=== PATIENT | female | born 1960 | race Caucasian/White ===

== ENCOUNTER 2018-06-23 09:44 | Outpatient (CLI) | payer BC ==
--- NOTE | 2018-06-23 10:48 | MMO ---
MAMMO Bilat Diag [facility]. CLINICAL HISTORY: Patient is 58 years old and is seen for diagnostic exam and pain in the left breast. The patient has the following family history of breast cancer: mother, at age 45. The patient has no personal history of cancer. VIEWS: The views performed were: bilateral craniocaudal with tomosynthesis; bilateral mediolateral oblique with tomosynthesis; and bilateral mediolateral. FILMS COMPARED: The present examination has been compared to prior imaging studies performed at [facility] on 06/23/2018, and at [facility] on 06/27/2007, 03/30/2012 and 08/29/2013. MAMMOGRAM FINDINGS: The breasts are heterogeneously dense, which could obscure a lesion on mammography. No suspicious calcifications or masses are seen. Nodularity is stable. IMPRESSION: FINDINGS IN BOTH BREASTS ARE BENIGN. A ROUTINE FOLLOW-UP MAMMOGRAM IN 1 YEAR IS RECOMMENDED. THE RESULTS OF THIS EXAM WERE SENT TO THE PATIENT. ACR BI-RADS Category 2 - Benign finding MAMMOGRAPHY NOTE: 1. A negative mammogram report should not delay a biopsy if a dominant of clinically suspicious mass is present. 2. Approximately 10% to 15% of breast cancers are not detected by mammography. 3. Adenosis and dense breasts may obscure an underlying neoplasm.
--- NOTE | 2018-06-23 11:27 | ULT ---
LEFT BREAST ULTRASOUND: Date: 06/23/18 HISTORY: Pain in left breast at the 5 o'clock position. FINDINGS: Correlation made with mammograms from same date. Sonographic evaluation of the region of pain in the 5 o'clock position demonstrates a 5.0 mm cyst. IMPRESSION: BIRADS Category 2 - Benign findings. Return to annual mammographic screening. POS: OFF
== END 2018-06-23 09:45 | disposition home or self-care (01) ==
LOC: BICMAMMO 09:44
PROVIDERS: ATTEND Family Medicine
DX: N64.4 Mastodynia (principal); Z80.3 Family history of malignant neoplasm of breast
CPT/HCPCS: 77066; G0279

== ENCOUNTER 2020-02-01 09:04 | Outpatient (CLI) | payer BC ==
--- NOTE | 2020-02-01 10:08 | MRI ---
Exam: Brain MRI without contrast HISTORY: Memory loss COMPARISON: None FINDINGS: Calvarial marrow signal intensity: Appropriate T1 signal Gradient echo sequence: No hemorrhage Brain parenchyma: No mass, mass effect or midline shift. Brain volume, age-appropriate. There is a T2 hyperintensity in the left subinsular white matter, compatible with a cavitary lacunar infarct versus a perivascular space. Cortical cifuentes-white matter differentiation: Preserved Restricted diffusion: Central arterial flow voids are maintained. Absent restricted diffusion White matter signal intensities:Scattered T2, FLAIR white matter hyperintensities due to chronic smal l vessel ischemic changes Sinuses: Adequate aeration of the paranasal sinuses and mastoid air cells. IMPRESSION: 1. No acute intracranial process.
== END 2020-02-01 09:05 | disposition home or self-care (01) ==
LOC: BICMRI 09:04
PROVIDERS: ATTEND Family Medicine
DX: R41.3 Other amnesia (principal)
CPT/HCPCS: 70551

== ENCOUNTER 2023-02-02 12:54 | Outpatient (CLI) | payer BC | END 2023-02-02 12:55 | disposition home or self-care (01) | LOC: SCSMRI 12:54 | PROVIDERS: ATTEND Orthopaedic Surgery | DX: M75.101 Unspecified rotator cuff tear or rupture of right shoulder, not specified as traumatic (principal); S43.431A Superior glenoid labrum lesion of right shoulder, initial encounter; S46.211A Strain of muscle, fascia and tendon of other parts of biceps, right arm, initial encounter; M25.411 Effusion, right shoulder; M19.011 Primary osteoarthritis, right shoulder ==